=== PATIENT | female | born 2000 | race Caucasian/White ===

== ENCOUNTER 2019-05-22 12:01 | Emergency (ER) | payer BC, OTHER ==
--- OUTSIDE RECORDS SUMMARY | 2019-05-22 12:09 | XMS REPORT | Continuity of Care Document ---
:2000 External Reference #:[id number] Author Name Elly Tinsley NP Address [address] [place] [address] Problems Active Problems Provider Date Acne Elly Tinsley NP Onset: 07/27/2018 Social History Type Date Description Comments Sex Unknown ETOH Use Never used alcohol Tobacco Use Start: Unknown Patient has never smoked Smoking Status Reviewed: 04/02/19 Patient has never smoked Allergies, Adverse Reactions, Alerts Description No Known Drug Allergies Medications Active Medications SIG Qnty Indications Ordering Provider Date Norgestimate-Eth take one tablet 84tabs Z30.011 Laureano, 08/22/2017 Estradiol by mouth every Elly, [employer] 0.25-35mg-mcg day, start Tablets monday of period Z79.3 Medications Administered in Office Medication SIG Qnty Indications Ordering Provider Date PPD Schedule, Nurses 12/05/2018 Injection PPD Schedule, Nurses 11/21/2018 Injection PPD Schedule, Nurses 02/28/2017 Injection PPD Schedule, Nurses 02/14/2017 Injection PPD Schedule, Nurses 03/29/2016 Injection PPD Otto Lind, 02/02/2016 Injection Immunizations CPT Code Status Date Vaccine Reaction Lot # [id number] Given 04/02/2018 Influenza Vac, [id number] Quadrivalent, Split, 0.5mL Dosage, Im Use 06758 Given 09/22/2017 Meningococcal Im inj completed, Pt [id number] B(Bexsero)protn otrMembran tolerated well Vesicle Vccn 2 [place] [address] Given 02/28/2017 Influenza Vac, [id number] Quadrivalent, Split, 0.5mL Dosage, Im Use 33803 Given 10/12/2016 Meningococcal [id number] B(Bexsero)protn otrMembran Vesicle Vccn 2 [place] 77753 Given 08/23/2016 Menactra/Menveo Im inj completed, Pt [id number] Meningococcal Vaccine tolerated well 92968 Given 08/23/2016 Meningococcal Im inj completed, Pt [id number] B(Bexsero)protn otrMembran tolerated well Vesicle Vccn 2 dose sche 95851 Given 03/29/2016 Influenza Virus Pt tolerated well [id number] Vaccine,Quadrivalent,Split, Preserv Free, 0.5mL,Im 75673 Given 08/14/2014 Gardasil-9 (HPV) Nonavalent PER [facility] 2-3 Dose Schedule Im OFFICE. 84284 Given 03/21/2014 Gardasil-9 (HPV) Nonavalent PER [facility] 2-3 Dose Schedule Im RECORDS. 75285 Given 01/21/2014 Gardasil-9 (HPV) Nonavalent [facility] 2-3 Dose Schedule Im RECORDS. 84797 Given 08/29/2011 Hepatitis A, Ped/Adolescent PER [facility] 2 Dose Schedule RECORDS. 52047 Given 07/27/2011 Menactra/Menveo PER [facility] Meningococcal Vaccine RECORDS. 61224 Given 07/30/2010 Tdap (Adacel) Ages 6 And PER [facility] Above Only RECORDS. 95606 Given 07/30/2010 Hepatitis A, Ped/Adolescent [facility] 2 Dose Schedule RECORDS. 34057 Given 07/04/2007 Varicella (Ch[facility] Pox) [facility] Immunization RECORDS. 99901 Given 06/07/2004 IPV / Poliomyelitis PER [facility] Immunization RECORDS. 23745 Given 06/07/2004 MMR Virus Immunization PER [facility] RECORDS. 00350 Given 06/07/2004 DTaP Immunization 6 Yrs & [facility] Younger RECORDS. 88429 Given 12/06/2000 Prevnar 13 Pneumococal PER [facility] Conjugate Vaccine RECORDS. 98869 Given 12/06/2000 DTaP Immunization 6 Yrs & PER [facility] Younger RECORD. 72669 Given 12/06/2000 Varicella (Chicken Pox) [facility] Immunization RECORDS. 37918 Given 09/06/2000 Hepatitis B Vac PER [facility] Ped/Adolescent 3 Dose RECORDS. Schedule 42629 Given 09/06/2000 MMR Virus Immunization PER [facility] RECORDS. 48939 Given 09/06/2000 Prevnar 13 Pneumococal PER [facility] Conjugate Vaccine OFFICE. 92289 Given 09/06/2000 Hib Pedvaxhib Vac 3 Dose PER [facility] Schedule RECORDS. 17318 Given 06/07/2000 Prevnar 13 Pneumococal PER [facility] Conjugate Vaccine RECORDS. 06277 Given 1999 DTaP Immunization 6 Yrs & PER [facility] Younger RECORDS. 44022 Given 1999 IPV / Poliomyelitis [facility] Immunization RECORDS. 90942 Given 1999 Hepatitis B Vac PER [facility] Ped/Adolescent 3 Dose RECORDS. Schedule 02717 Given 1999 IPV / Poliomyelitis PER [facility] Immunization RECORDS. 79070 Given 1999 DTaP Immunization 6 Yrs & PER [facility] Younger RECORDS. 51001 Given 1999 Hib Pedvaxhib Vac 3 Dose PER [facility] Schedule RECORDS. 56127 Given 1999 Hepatitis B Vac PER [facility] Ped/Adolescent 3 Dose RECORDS. Schedule 36713 Given 1999 IPV / Poliomyelitis PER [facility] Immunization RECORDS. 55111 Given 1999 DTaP Immunization 6 Yrs & [facility] Younger RECORDS. 55228 Given 1999 Hib Pedvaxhib Vac 3 Dose PER [facility] Schedule RECORDS. Vital Signs Date Vital Result Comment 04/02/2019 9:53am Body Temperature 99.2 F tympanic Weight 151.00 lb Weight Percentile 81st Heart Rate 76 /min BP Systolic 120 mmHg BP Diastolic 74 mmHg Respiratory Rate 16 /min Height 63.5 inches 5'3.50" 07/27/18 [place] Height Percentile 38 % BMI (Body Mass Index) 26.3 kg/m2 Body Mass Index Percentile 85 % 08/31/2018 2:10pm Body Temperature 99.1 F Weight 144.00 lb Weight Percentile 76th Heart Rate 72 /min BP Systolic 114 mmHg BP Diastolic 70 mmHg Respiratory Rate 18 /min Height 63.5 inches 5'3.50" 07/27/18 [employer]ATOR Height Percentile 38 % BMI (Body Mass Index) 25.1 kg/m2 Body Mass Index Percentile 80 % Results Test Date Facility Test Result H/L Range Note Laboratory test finding 04/02/2019 [facility] Culture <pending> Procedures Description No Information Available Medical Devices Description No Information Available Encounters Type Date Location Provider Dx Diagnosis Office Visit 12/07/2018 [facility] Schedule, Nurses Z11.1 Encounter for screening 10:00a for respiratory tuberculosis Office Visit 11/23/2018 [facility] Schedule, Nurses Z11.1 Encounter for screening 1:30p for respiratory tuberculosis Assessments Date Code Description Provider 04/02/2019 M54.5 Low back pain Digiovanna, Elly, [employer] 04/02/2019 M54.5 Low back pain Schedule, Laboratory 04/02/2019 Z13.220 Encounter for screening for lipoid Schedule, Laboratory disorders 12/07/2018 Z11.1 Encounter for screening for respiratory Digiovanna, Elly, [employer] tuberculosis 12/07/2018 Z11.1 Encounter for screening for respiratory Schedule, Nurses tuberculosis 12/05/2018 Z11.1 Encounter for screening for respiratory Digiovanna, Elly, [employer] tuberculosis 12/05/2018 Z11.1 Encounter for screening for respiratory Schedule, Nurses tuberculosis 11/23/2018 Z11.1 Encounter for screening for respiratory DigiovannaPraful MD tuberculosis 11/23/2018 Z11.1 Encounter for screening for respiratory Schedule, Nurses tuberculosis 11/21/2018 Z11.1 Encounter for screening for respiratory DigiovannaPraful MD tuberculosis 11/21/2018 Z11.1 Encounter for screening for respiratory Schedule, Nurses tuberculosis Plan of Treatment Future Appointment(s):07/29/2019 3:00 pm - Rosa Benson NP at [facility]04/02/2019 - Elly Tinsley, BILLIEM54.5 Low back painNew Xrays:Ultrasound Kidney, Scheduled: 04/04/19Ultrasound Pelvic Transvaginal, Scheduled: 04/04/19Comments: Rest and position for comfortIncrease Advil to 600mg every 6-8 hours with foodWill check culture andlabs and US and notify of result.Follow up:PRN Functional Status Description No Information Available Mental Status Description No Information Available Referrals Description No Information Available
[2019-05-22 12:36] VITALS: BP 117/74
--- NOTE | 2019-05-22 12:54 | UC ---
Throat Pain/Nasal Layo HPI - HPI Summary HPI Summary: 18-year-old female who is experiencing right-sided sore throat and right earache. She denies any fever or chills. No recent cold symptoms. - History of Current Complaint Chief Complaint: UCRespiratory Stated Complaint: RT EAR/ THROAT PAIN Time Seen by Provider: 05/22/19 12:26 Hx Obtained From: Patient Hx Last Menstrual Period: 05/16/19 Onset/Duration: Gradual Onset Severity: Mild Pain Intensity: 4 Cough: None Associated Signs & Symptoms: Positive: Negative - Allergies/Home Medications Allergies/Adverse Reactions: Allergies Allergy/AdvReac Type Severity Reaction Status Date / Time 3 season allergies Allergy Eyes Uncoded 05/22/19 12:30 Itchy/Swollen/Red/Watery Home Medications: Home Medications Bcp 1 tab PO DAILY 05/22/19 [History] PMH/Surg Hx/FS Hx/Imm Hx Previously Healthy: Yes - Surgical History Surgical History: Yes Surgery Procedure, Year, and Place: tonsilectomy - Family History Known Family History: Positive: Cardiac Disease, Hypertension, Diabetes - Social History Occupation: Student Lives: With Family Alcohol Use: None Substance Use Type: None Smoking Status (MU): Never Smoked Tobacco - Immunization History Vaccination Up to Date: Yes Review of Systems All Other Systems Reviewed And Are Negative: Yes ENT: Positive: Sore Throat, Ear Ache - Right earache and right-sided sore throat started today. Is Patient Immunocompromised?: No Physical Exam Triage Information Reviewed: Yes Appearance: Well-Appearing, No Pain Distress, Well-Nourished Vital Signs: Initial Vital Signs Temp 98.7 F 05/22/19 12:32 Pulse 104 05/22/19 12:32 Resp 16 05/22/19 12:32 BP 117/74 05/22/19 12:32 Pulse Ox 100 05/22/19 12:32 Vital Signs Reviewed: Yes Eyes: Positive: Conjunctiva Clear ENT: Positive: Pharyngeal erythema - Right sided tonsillar tammy with erythema. , TMs normal, Uvula midline Neck: Positive: Supple, Nontender - Mild tenderness over the right tonsillar lymph node however the lymph nodes themselves are not enlarged., No Lymphadenopathy Respiratory: Positive: Lungs clear, Normal breath sounds, No respiratory distress, No accessory muscle use Cardiovascular: Positive: RRR, No Murmur, Pulses Normal, Brisk Capillary Refill Abdomen Description: Positive: Nontender, No Organomegaly, Soft. Negative: CVA Tenderness (R), CVA Tenderness (L), Distended, Guarding, Hernia @, Splenomegaly Bowel Sounds: Positive: Present Musculoskeletal Exam: Normal Neurological Exam: Normal Psychological Exam: Normal Skin Exam: Normal Throat Pain/Nasal Course/Dx - Course Course Of Treatment: Rapid strep test negative. Patient is comfortable here. - Differential Dx/Diagnosis Provider Diagnosis: Pharyngitis Discharge ED - Sign-Out/Discharge Documenting (check all that apply): Patient Departure All imaging exams completed and their final reports reviewed: No Studies - Discharge Plan Condition: Good Disposition: HOME Patient Education Materials: Pharyngitis (ED) Referrals: Otto Lind DO [Primary Care Provider] - Additional Instructions: Increase fluids, warm saltwater gargles, Tylenol every 4 hours for fever or pain may alternate with Motrin every 8 hours. Definite follow-up with your primary care provider in 3 or 4 days if continued sore throat. - Billing Disposition and Condition Condition: GOOD Disposition: Home
== END 2019-05-22 13:06 | disposition home or self-care (01) ==
LOC: UCCORT 12:01
DX: J02.9 Acute pharyngitis, unspecified (principal); H92.01 Otalgia, right ear; Z91.09 Other allergy status, other than to drugs and biological substances
CPT/HCPCS: 87651; 99201; G0463